=== PATIENT | male | born 1965 ===

== ENCOUNTER 2017-04-01 12:14 | Observation (INO) | payer OTHER ==
[2017-04-01] MEDS ORDERED: Sodium Chloride 0.9% 1,000 ML IV STA (12:50)
--- NOTE | 2017-04-01 12:52 | ED PDOC ---
HPI: Chest Pain Time Seen by Provider: 04/01/17 12:35 Chief Complaint (Nursing): Chest Pain Chief Complaint (Provider): Chest Pain, Palpitations History Per: Patient History/Exam Limitations: no limitations Onset/Duration Of Symptoms: Days (x 1 month) Current Symptoms Are (Timing): Intermittent Episodes Additional Complaint(s): Ant Babb is a 51 year old male who presents to the ED complaining of chest pain, back pain, and palpitations, occurring intermittently for the past month. Denies any associated shortness of breath, dizziness, nausea, vomiting, diarrhea , abdominal pain, or leg pain. Patient denies having past medical history. PMD: Dr. Hola Lemus in [place] Past Medical History Reviewed: Historical Data, Nursing Documentation, Vital Signs Vital Signs: Last Vital Signs Temp 97.8 F 04/01/17 12:22 Pulse 74 04/01/17 12:46 Resp 16 04/01/17 12:22 BP 116/67 04/01/17 12:22 Pulse Ox 100 04/01/17 12:53 - Medical History PMH: No Chronic Diseases - Surgical History Surgical History: No Surg Hx - Family History Family History: States: Unknown Family Hx - Social History Current smoker - smoking cessation education provided: No Alcohol: None Drugs: Denies - Allergies Allergies/Adverse Reactions: Allergies Allergy/AdvReac Type Severity Reaction Status Date / Time No Known Allergies Allergy Verified 04/01/17 12:21 Review of Systems ROS Statement: Except As Marked, All Systems Reviewed And Found Negative Constitutional: Negative for: Fever Cardiovascular: Positive for: Chest Pain, Palpitations Respiratory: Negative for: Shortness of Breath Gastrointestinal: Negative for: Nausea, Vomiting, Abdominal Pain, Diarrhea Musculoskeletal: Positive for: Back Pain. Negative for: Leg Pain Neurological: Negative for: Headache, Dizziness Physical Exam - Reviewed Nursing Documentation Reviewed: Yes Vital Signs Reviewed: Yes - Physical Exam Appears: Positive for: Non-toxic, No Acute Distress Head Exam: Positive for: ATRAUMATIC, NORMAL INSPECTION, NORMOCEPHALIC Skin: Positive for: Normal Color, Warm, Dry Eye Exam: Positive for: EOMI, Normal appearance, PERRL ENT: Positive for: Normal ENT Inspection Neck: Positive for: Normal, Painless ROM, Supple Cardiovascular/Chest: Positive for: Regular Rate, Rhythm, Chest Non Tender. Negative for: Edema, Murmur Respiratory: Positive for: Normal Breath Sounds. Negative for: Accessory Muscle Use, Respiratory Distress Pulses-Dorsalis Pedis (L): 2+ Pulses-Dorsalis Pedis (R): 2+ Gastrointestinal/Abdominal: Positive for: Normal Exam, Soft. Negative for: Tenderness Back: Positive for: Normal Inspection. Negative for: L CVA Tenderness, R CVA Tenderness Extremity: Positive for: Normal ROM. Negative for: Tenderness, Pedal Edema, Calf Tenderness, Deformity Neurologic/Psych: Positive for: Alert, Oriented (x3). Negative for: Motor/ Sensory Deficits - Laboratory Results Result Diagrams: 04/01/17 13:05 04/01/17 13:05 Interpretation Of Abnormal: no acute - ECG ECG: Positive for: Interpreted By Me, Viewed By Me ECG Rhythm: Positive for: Normal QRS, Normal ST Segment, Sinus Rhythm O2 Sat by Pulse Oximetry: 100 (RA) Pulse Ox Interpretation: Normal - Radiology X-Ray: Interpreted by Me, Viewed By Me X-Ray Interpretation: No Acute Disease - Progress ED Course And Treament: 1500: Stable. AAOx3. Pain free. Spoke with Dr. Sanchez. Will admit tele obs. Medical Decision Making Medical Decision Making: Time: 12:50 Initial Plan: * EKG * CMP * Troponin I * CBC w/ differential * PTT * Prothrombin time * Chest X-Ray * NS IV 1000 ml at 1000 mls/hr * Aspirin 325 mg PO Scribe Attestation: Documented by Sary Hall, acting as a scribe for Rodolfo Reyes MD Provider Scribe Attestation: All medical record entries made by the Scribe were at my direction and personally dictated by me. I have reviewed the chart and agree that the record accurately reflects my personal performance of the history, physical exam, medical decision making, and the department course for this patient. I have also personally directed, reviewed, and agree with the discharge instructions and disposition. Disposition - Clinical Impression Clinical Impression: Chest pain - Patient ED Disposition Is Patient to be Admitted: Yes Counseled Patient/Family Regarding: Studies Performed, Diagnosis - Disposition Disposition Time: 13:59 Condition: FAIR - Pt Status Changed To: Hospital Disposition Of: Observation - POA Present On Arrival: None Core Measure Indicators: Chest Pain
[2017-04-01 13:12] LABS: BASO % 0.6 % (0.0-2.0); EOS % 0.7 % (0.0-4.0); HEMATOCRIT 40.1 % (35.0-51.0); LYMPH # 1.5 K/uL (1.0-4.3); LYMPH % 22.3 % (20.0-40.0); MEAN CELL VOLUME 92.3 fl (80.0-94.0); MEAN CORPUSCULAR HGB CONC 33.6 g/dL (33.0-37.0); MEAN PLATELET VOLUME 8.3 fl (7.2-11.7); MONO # 0.5 K/uL (0.0-0.8); MONO % 7.4 % (0.0-10.0); NEUT # 4.7 K/uL (1.8-7.0); NRBC % 0.1 % (0.0-0.0); WHITE BLOOD COUNT 6.8 K/uL (4.8-10.8)
[2017-04-01 13:21] LABS: PARTIAL THROMBOPLASTIN TIME 38.3 Seconds (25.6-37.1)
[2017-04-01 13:24] LABS: ALB/GLOB RATIO 1.2 (1.0-2.1); ALKALINE PHOSPHATASE 81 U/L (38-126); ALT/SGPT 67 U/L (21-72); AST/SGOT 39 U/L (17-59); BILIRUBIN,TOTAL 0.5 mg/dl (0.2-1.3); BLOOD UREA NITROGEN 17 mg/dl (9-20); CALCIUM 8.7 mg/dL (8.4-10.2); CARBON DIOXIDE 28 mmol/L (22-30); CHLORIDE 107 mmol/L (98-107); GFR AFRICAN-AMERICAN > 60; GLUCOSE,RANDOM 91 mg/dL (75-110); POTASSIUM 4.1 MMOL/L (3.6-5.0); SODIUM 142 mmol/l (132-148); TOTAL PROTEIN 7.2 G/DL (6.3-8.2)
--- NOTE | 2017-04-01 14:19 | RAD ---
HISTORY: pain COMPARISON: No prior. FINDINGS: LUNGS: No active pulmonary disease. PLEURA: No significant pleural effusion identified, no pneumothorax apparent. CARDIOVASCULAR: Normal. OSSEOUS STRUCTURES: No significant abnormalities. VISUALIZED UPPER ABDOMEN: Normal. OTHER FINDINGS: None. IMPRESSION: No active disease.
[2017-04-01] MEDS ORDERED: Influenza Vaccine 18yr & older 0.5 ML/45 MCG SYR IM ONE (17:00)
[2017-04-01] MEDS ORDERED: Pneumococcal 23-Valent Vaccine IM ONE (17:00)
[2017-04-02 06:16] LABS: CHOLESTEROL 187 mg/dL (0-199)
[2017-04-02 08:13] VITALS: O2SAT 98
--- NOTE | 2017-04-02 08:53 | CARD ---
APPROVED REPORT EKG Measurement Heart [id number] <Conclusion> Normal sinus rhythm Incomplete right bundle branch block Borderline ECG
--- NOTE | 2017-04-02 11:48 | CP.PCM.HP ---
History of Present Illness - History of Present Illness History of Present Illness: CC: Chest PAin HPI: A 51 year old male who presents to the ED complaining of chest pain, back pain, and palpitations, occurring intermittently for the past month. Denies any associated shortness of breath, dizziness, nausea, vomiting, diarrhea, abdominal pain, or leg pain. Patient denies having past medical history. No more chest pain today. ACS ruled out. Present on Admission - Present on Admission Any Indicators Present on Admission: No Review of Systems - Review of Systems All systems: reviewed and no additional remarkable complaints except Past Patient History - Past Medical History & Family History Past Medical History?: Yes - Past Social History Smoking Status: Never Smoked - CARDIAC Hx Cardiac Disorders: Yes Hx Hypercholesterolemia: Yes Hx Hypertension: Yes - PULMONARY Hx Respiratory Disorders: No - NEUROLOGICAL Hx Neurological Disorder: No - HEENT Hx HEENT Problems: No - RENAL Hx Chronic Kidney Disease: No - ENDOCRINE/METABOLIC Hx Endocrine Disorders: No - HEMATOLOGICAL/ONCOLOGICAL Hx Blood Disorders: No Hx Blood Transfusions: No - INTEGUMENTARY Hx Dermatological Problems: No - MUSCULOSKELETAL/RHEUMATOLOGICAL Hx Musculoskeletal Disorders: Yes Hx Back Pain: Yes Hx Falls: No - GASTROINTESTINAL Hx Gastrointestinal Disorders: No - GENITOURINARY/GYNECOLOGICAL Hx Genitourinary Disorders: No - PSYCHIATRIC Hx Psychophysiologic Disorder: No Hx Substance Use: No - SURGICAL HISTORY Hx Surgeries: Yes Other/Comment: Eye Sx - ANESTHESIA Hx Anesthesia: No Hx Anesthesia Reactions: No Hx Malignant Hyperthermia: No Has any member of the family had a problem w/ anesthesia?: No Meds Allergies/Adverse Reactions: Allergies Allergy/AdvReac Type Severity Reaction Status Date / Time No Known Allergies Allergy Verified 04/01/17 12:21 Physical Exam - Constitutional Appears: Well, No Acute Distress - Head Exam Head Exam: ATRAUMATIC, NORMAL INSPECTION, NORMOCEPHALIC - Eye Exam Eye Exam: EOMI, Normal appearance, PERRL Pupil Exam: NORMAL ACCOMODATION, PERRL - ENT Exam ENT Exam: Mucous Membranes Moist, Normal Exam - Neck Exam Neck exam: Positive for: Normal Inspection - Respiratory Exam Respiratory Exam: Clear to Auscultation Bilateral, NORMAL BREATHING PATTERN - Cardiovascular Exam Cardiovascular Exam: REGULAR RHYTHM, +S1, +S2 - GI/Abdominal Exam GI & Abdominal Exam: Normal Bowel Sounds, Soft. absent: Tenderness - Exam Exam: Circumcision, NORMAL INSPECTION External exam: NORMAL EXTERNAL EXAM Speculum exam: NORMAL SPECULUM EXAM Bimanual exam: NORMAL BIMANUAL EXAM - Extremities Exam Extremities exam: Positive for: full ROM, normal capillary refill, normal inspection - Back Exam Back exam: NORMAL INSPECTION. absent: CVA tenderness (L), CVA tenderness (R) - Neurological Exam Neurological exam: Alert, CN II-XII Intact, Normal Gait, Oriented x3, Reflexes Normal - Psychiatric Exam Psychiatric exam: Normal Affect, Normal Mood - Skin Skin Exam: Dry, Intact, Normal Color, Warm Results - Vital Signs Recent Vital Signs: Last Vital Signs Temp 98.4 F 04/02/17 08:00 Pulse 77 04/02/17 09:00 Resp 18 04/02/17 08:00 BP 116/78 04/02/17 08:00 Pulse Ox 98 04/02/17 08:00 - Labs Result Diagrams: 04/01/17 13:05 04/01/17 13:05 Labs: Laboratory Results - last 24 hr 04/01/17 04/01/17 04/01/17 13:05 13:05 13:05 WBC 6.8 RBC 4.34 L Hgb 13.5 Hct 40.1 MCV 92.3 MCH 31.0 MCHC 33.6 RDW 14.0 Plt Count 208 MPV 8.3 Neut % (Auto) 69.0 Lymph % (Auto) 22.3 [place] % (Auto) 7.4 Eos % (Auto) 0.7 Baso % (Auto) 0.6 Neut # 4.7 Lymph # 1.5 [place] # 0.5 Eos # 0.0 Baso # 0.0 PT 11.1 INR 1.0 APTT 38.3 H Sodium 142 Potassium 4.1 Chloride 107 Carbon Dioxide 28 Anion Gap 11 BUN 17 Creatinine 0.7 L Est GFR ( Amer) > 60 Est GFR (Non-Af Amer) > 60 Random Glucose 91 Calcium 8.7 Total Bilirubin 0.5 AST 39 ALT 67 Alkaline Phosphatase 81 Troponin I < 0.0120 Total Protein 7.2 Albumin 3.9 Globulin 3.3 Albumin/Globulin Ratio 1.2 Triglycerides Cholesterol LDL Cholesterol Direct HDL Cholesterol 04/01/17 04/02/17 20:30 05:00 WBC RBC Hgb Hct MCV MCH MCHC RDW Plt Count MPV Neut % (Auto) Lymph % (Auto) [place] % (Auto) Eos % (Auto) Baso % (Auto) Neut # Lymph # [place] # Eos # Baso # PT INR APTT Sodium Potassium Chloride Carbon Dioxide Anion Gap BUN Creatinine Est GFR ( Amer) Est GFR (Non-Af Amer) Random Glucose Calcium Total Bilirubin AST ALT Alkaline Phosphatase Troponin I < 0.0120 < 0.0120 Total Protein Albumin Globulin Albumin/Globulin Ratio Triglycerides 92 Cholesterol 187 LDL Cholesterol Direct 121 HDL Cholesterol 43 - EKG Data EKG Interpreted by: Myself EKG shows normal: Sinus rhythm, QRS complexes, ST-T waves Assessment & Plan (1) Chest pain Assessment and Plan: ACS Ruled out Recieved ASA D/W Projection Engineer, and will D/C Home Follow Up with PCP Status: Acute
--- NOTE | 2017-04-02 11:53 | CP.PCM.DIS ---
Provider - Provider Date of Admission: 04/01/17 14:00 Attending physician: Samra Sanchez MD Time Spent in preparation of Discharge (in minutes): 20 Diagnosis - Discharge Diagnosis (1) Chest pain Status: Acute Hospital Course - Lab Results Lab Results: Most Recent Lab Values WBC 6.8 K/uL (4.8-10.8) 04/01/17 13:05 RBC 4.34 Mil/uL (4.40-5.90) L 04/01/17 13:05 Hgb 13.5 g/dL (12.0-18.0) 04/01/17 13:05 Hct 40.1 % (35.0-51.0) 04/01/17 13:05 MCV 92.3 fl (80.0-94.0) 04/01/17 13:05 MCH 31.0 pg (27.0-31.0) 04/01/17 13:05 MCHC 33.6 g/dL (33.0-37.0) 04/01/17 13:05 RDW 14.0 % (11.5-14.5) 04/01/17 13:05 Plt Count 208 K/uL (130-400) 04/01/17 13:05 MPV 8.3 fl (7.2-11.7) 04/01/17 13:05 Neut % (Auto) 69.0 % (50.0-75.0) 04/01/17 13:05 Lymph % (Auto) 22.3 % (20.0-40.0) 04/01/17 13:05 [place] % (Auto) 7.4 % (0.0-10.0) 04/01/17 13:05 Eos % (Auto) 0.7 % (0.0-4.0) 04/01/17 13:05 Baso % (Auto) 0.6 % (0.0-2.0) 04/01/17 13:05 Neut # 4.7 K/uL (1.8-7.0) 04/01/17 13:05 Lymph # 1.5 K/uL (1.0-4.3) 04/01/17 13:05 [place] # 0.5 K/uL (0.0-0.8) 04/01/17 13:05 Eos # 0.0 K/uL (0.0-0.7) 04/01/17 13:05 Baso # 0.0 K/uL (0.0-0.2) 04/01/17 13:05 PT 11.1 Seconds (9.8-13.1) 04/01/17 13:05 INR 1.0 (0.9-1.2) 04/01/17 13:05 APTT 38.3 Seconds (25.6-37.1) H 04/01/17 13:05 Sodium 142 mmol/l (132-148) 04/01/17 13:05 Potassium 4.1 MMOL/L (3.6-5.0) 04/01/17 13:05 Chloride 107 mmol/L (98-107) 04/01/17 13:05 Carbon Dioxide 28 mmol/L (22-30) 04/01/17 13:05 Anion Gap 11 (10-20) 04/01/17 13:05 BUN 17 mg/dl (9-20) 04/01/17 13:05 Creatinine 0.7 mg/dl (0.8-1.5) L 04/01/17 13:05 Est GFR ( Amer) > 60 04/01/17 13:05 Est GFR (Non-Af Amer) > 60 04/01/17 13:05 Random Glucose 91 mg/dL (75-110) 04/01/17 13:05 Calcium 8.7 mg/dL (8.4-10.2) 04/01/17 13:05 Total Bilirubin 0.5 mg/dl (0.2-1.3) 04/01/17 13:05 AST 39 U/L (17-59) 04/01/17 13:05 ALT 67 U/L (21-72) 04/01/17 13:05 Alkaline Phosphatase 81 U/L (38-126) 04/01/17 13:05 Troponin I < 0.0120 ng/mL (0.00-0.120) 04/02/17 05:00 Total Protein 7.2 G/DL (6.3-8.2) 04/01/17 13:05 Albumin 3.9 g/dL (3.5-5.0) 04/01/17 13:05 Globulin 3.3 gm/dL (2.2-3.9) 04/01/17 13:05 Albumin/Globulin Ratio 1.2 (1.0-2.1) 04/01/17 13:05 Triglycerides 92 mg/DL (0-149) 04/02/17 05:00 Cholesterol 187 mg/dL (0-199) 04/02/17 05:00 LDL Cholesterol Direct 121 mg/dL (0-129) 04/02/17 05:00 HDL Cholesterol 43 MG/DL (30-70) 04/02/17 05:00 - Hospital Course Hospital Course: ACs Ruled out Discharge Exam - Head Exam Head Exam: ATRAUMATIC, NORMAL INSPECTION, NORMOCEPHALIC - Eye Exam Eye Exam: EOMI, Normal appearance, PERRL Pupil Exam: NORMAL ACCOMODATION, PERRL - Neck Exam Neck exam: Full Rom, Normal Inspection - GI/Abdominal Exam GI & Abdominal Exam: Normal Bowel Sounds - Rectal Exam Rectal Exam: NORMAL INSPECTION - Exam Exam: Circumcision, NORMAL INSPECTION External exam: NORMAL EXTERNAL EXAM Speculum exam: NORMAL SPECULUM EXAM Bimanual exam: NORMAL BIMANUAL EXAM - Neurological Exam Neurological exam: Alert, CN II-XII Intact, Normal Gait, Oriented x3, Reflexes Normal - Psychiatric Exam Psychiatric exam: Normal Affect, Normal Mood - Skin Skin Exam: Dry, Intact, Normal Color, Warm Discharge Plan - Follow Up Plan Condition: FAIR Disposition: HOME/ ROUTINE
[2017-04-02 12:43] VITALS: BP 104/68; PULSE 75; RESP 20; TEMP 97.3
--- NOTE | 2017-04-02 14:01 | CON ---
CARDIOLOGY CONSULTATION REASON FOR CONSULTATION: Chest pain. HISTORY OF PRESENT ILLNESS: The patient is 51 years old male, who presented because of chest pain and back pain as well as palpitation. The patient is unaware of any prior cardiac history. The patient denies any fever or chills. The patient denies any productive cough. At this time, he is chest pain free and no reported arrhythmia or hypertension since the patient's admission to telemetry. REVIEW OF SYSTEMS: No nausea or vomiting. No fever or chills. No dizziness or syncope. MEDICATIONS: The patient received aspirin 325 mg in the ER. PHYSICAL EXAMINATION: GENERAL: The patient is a middle-aged male, who does not appear to be in any acute distress. VITAL SIGNS: Blood pressure 104/68, heart rate 75, temperature 97.3, respirations 20. HEENT: Normocephalic. NECK: No JVD. CHEST: Clear. HEART: S1 and S2 regular. ABDOMEN: Soft. EXTREMITIES: No edema. LABORATORY DATA: SMA-7 is within normal limit except for creatinine of 0.7. Lipid profile is within normal limit. Three sets of troponins are negative. Hemoglobin, hematocrit, white count and platelet count are within normal limit. EKG revealed sinus rhythm, incomplete right bundle-branch block. Chest x-ray was unremarkable. ASSESSMENT: Atypical chest pain, myocardial infarction ruled out. RECOMMENDATIONS: Start aspirin 81 mg once a day. Obtain an echocardiogram as well as serum D-dimer. Florencio Garcia MD
== END 2017-04-02 13:55 | disposition home or self-care (01) ==
LOC: H.ER 12:14 → H.ERHOLD 14:00 → H.TEL 15:19
PROVIDERS: ADMIT Internal Medicine; ATTEND Internal Medicine
DX: R07.9 Chest pain, unspecified (principal); E78.00 Pure hypercholesterolemia, unspecified; I10 Essential (primary) hypertension; Z23 Encounter for immunization
CPT/HCPCS: 36415; 71010; 80053; 80061; 84484; 85025; 85610; 85730; 90471; 90732; 93005; 99285; G0378; J7040; Q2035

== ENCOUNTER 2018-07-18 09:39 | Day surgery (SDC) | payer OTHER ==
[2018-07-18 11:32] VITALS: BMI 25.0
[2018-07-18] MEDS ORDERED: Lactated Ringer's 500 ML IV ONE (11:38)
[2018-07-18] MEDS ORDERED: Midazolam 2 MG/2 ML VIAL ONE (12:38)
[2018-07-18] MEDS ORDERED: Propofol 10 mg/ml Inj (20 ML) ONE (12:39)
[2018-07-18 13:19] VITALS: TEMP 96.8
[2018-07-18 13:23] VITALS: RESP 15; O2SAT 100
[2018-07-18 13:49] VITALS: BP 115/78; PULSE 78
== END 2018-07-18 14:01 | disposition home or self-care (01) ==
LOC: H.ENDO 09:39
PROVIDERS: ATTEND Internal Medicine Gastroenterology
DX: Z12.11 Encounter for screening for malignant neoplasm of colon (principal); K64.8 Other hemorrhoids; K31.89 Other diseases of stomach and duodenum; E78.5 Hyperlipidemia, unspecified; R06.83 Snoring
CPT/HCPCS: 43239; 45378; 88305; J2001; J2250; J2704; J7120